=== PATIENT | female | born 1960 | race Caucasian/White ===

== ENCOUNTER 2016-11-05 22:20 | Emergency (ER) | payer OTHER, BC ==
[2016-11-05] MEDS ORDERED: FAMOTIDINE 20 MG TABLET PO STA (22:32)
[2016-11-05] MEDS ORDERED: predniSONE 20 MG TABLET PO STA (22:32)
[2016-11-05] MEDS ORDERED: diphenhydrAMINE 25 MG CAPSULE PO STA (22:32)
[2016-11-05] MEDS ORDERED: FAMOTIDINE 20 MG TABLET ONE (22:33)
[2016-11-05] MEDS ORDERED: diphenhydrAMINE 25 MG CAPSULE PO ONE (22:33)
[2016-11-05] MEDS ORDERED: predniSONE 20 MG TABLET ONE (22:33)
== END 2016-11-05 23:00 | disposition home or self-care (01) ==
DX: L27.0 Generalized skin eruption due to drugs and medicaments taken internally (principal); T37.8X5A Adverse effect of other specified systemic anti-infectives and antiparasitics, initial encounter; T49.0X5A Adverse effect of local antifungal, anti-infective and anti-inflammatory drugs, initial encounter
CPT/HCPCS: 99283; A9270; J7512

== ENCOUNTER 2017-11-07 23:32 | Emergency (ER) | payer OTHER, BC ==
[2017-11-07] MEDS ORDERED: KETOROLAC 60 MG/2 ML VIAL IVP STA (23:41)
[2017-11-07] MEDS ORDERED: SODIUM CHLORIDE 0.9% 1,000 ML IV ONE (23:41)
[2017-11-08 00:28] LABS: BILIRUBIN,URINE NEGATIVE (NEGATIVE); GLUCOSE, URINE (UA) NEGATIVE (NEGATIVE); KETONES,URINE (UA) NEGATIVE (NEGATIVE); LEUKOCYTE ESTERASE, URINE SMALL (NEGATIVE); NITRITE,URINE NEGATIVE (NEGATIVE); OCCULT BLOOD,URINE LARGE (NEGATIVE); PH,URINE 5.5 PH (5.0-7.5); PROTEIN,URINE 30 mg/dL (NEGATIVE); UROBILINOGEN,URINE 0.2 (NORMAL) E.U./dL (NORMAL)
[2017-11-08 00:30] LABS: CLARITY,URINE CLOUDY (CLEAR)
--- NOTE | 2017-11-08 00:40 | CT Preliminary Report ---
Exam: CT ABDOMEN/PELVIS W/O IMPRESSION: 1. Moderate right-sided hydronephrosis due to a 5 mm right UPJ stone, 814 Hounsfield units in density . 2. No additional right or left-sided intrarenal stone. 3. Surgically absent uterus. Ovaries are not visualized, possibly surgically absent as well. 4. No bowel obstruction. Averaged moderate retained colon fecal material. [facility] SITE ID: [id number]
[2017-11-08 00:45] LABS: BACTERIA,URINE Rare /HPF (None Seen); MUCUS,URINE Few Strands; RBC,URINE TNTC /HPF (0-5); SQUAMOUS EPITHELIAL CELL,UR FEW Squamous (<= Few)
--- NOTE | 2017-11-08 00:50 | ED Physician Documentation ---
PD HPI ABD PAIN - Stated complaint Stated Complaint: ABDOMINAL PX - Chief complaint Chief Complaint: Abd Pain - History obtained from History obtained from: Patient, Family - History of Present Illness Timing - onset: Yesterday Timing - details: Intermittant, Waxing and waning Quality: Aching, Sharp Location: RLQ Worsened by: No: Position, Palpation Associated symptoms: Hematuria. No: Fever, Nausea Recently seen: Clinic - Additional information Additional information: Patient is a 57 year old female who is presenting to the emergency department for hematuria and abdominal pain. patient states that her symptoms started a few days ago. patient went to the clinic today where they checked her urine and she had blood in it but they told her everything was ok and started the patient on antibiotics for a sinusitis. Patient states that her abdominal pain persisted so she came to the emergency department. Review of Systems Constitutional: denies: Fever, Chills Eyes: reports: Reviewed and negative Ears: reports: Reviewed and negative Throat: reports: Reviewed and negative Cardiac: denies: Chest pain / pressure GI: reports: Abdominal Pain, Diarrhea. 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: 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, Ovarian cysts : None HEENT: None Psych: None Musculoskeletal: None Derm: None - Past Surgical History Past Surgical History: Yes General: Other /CLASSICS TEACHER: Hysterectomy - Present Medications Home Medications: Ambulatory Orders Medication Instructions Recorded Confirmed Levothyroxine Sodium [Synthroid] 150 mcg PO 11/07/17 Lorazepam [Ativan] 1 mg PO BID 11/07/17 11/07/17 raNITIdine [Zantac] 150 mg PO BID 11/07/17 11/07/17 Ketorolac [Toradol] 10 mg PO Q6H #14 tablet 11/08/17 Ondansetron Odt [Zofran] 4 mg TL Q6H PRN #14 tablet 11/08/17 Oxycodone HCl/Acetaminophen 1 - 2 each PO Q6H PRN #10 tablet 11/08/17 [Percocet 5-325 mg Tablet] Tamsulosin [Flomax] 0.4 mg PO DAILY #10 capsule 11/08/17 - Allergies Allergies/Adverse Reactions: Allergies Allergy/AdvReac Type Severity Reaction Status Date / Time No Known Drug Allergies Allergy Verified 11/07/17 23:41 - Social History Does the pt smoke?: No Smoking Status: Never smoker Does the pt drink ETOH?: No Does the pt have substance abuse?: No - Immunizations Immunizations are current?: Yes - POLST Patient has POLST: No PD ED PE NORMAL - General General: Alert and oriented X 3 - HEENT HEENT: Atraumatic - Neck Neck: Supple, no meningeal sign - Cardiac Cardiac: RRR - Respiratory Respiratory: No respiratory distress - Abdomen Abdomen: Soft, Non tender, Non distended - Derm Derm: Normal color, Warm and dry, No rash - Extremities Extremities: No deformity - Neuro Neuro: Alert and oriented X 3 Eye Opening: Spontaneous PD ED PE EXPANDED - General General: Alert, In Pain - HEENT HEENT: Dry mucous membranes Results - Vitals Vitals: Vital Signs - 24 hr 11/07/17 11/08/17 23:37 01:07 Temperature 36.3 C L Heart Rate 81 64 Respiratory 18 16 Rate Blood Pressure 158/73 H 147/75 H O2 Saturation 99 97 Oxygen O2 Source Room air - Labs Labs: Laboratory Tests 11/08/17 00:15 Urine Color YELLOW Urine Clarity CLOUDY Urine pH 5.5 Ur Specific [place] >=1.030 H Urine Protein 30 H Urine Glucose (UA) NEGATIVE Urine Ketones NEGATIVE Urine Occult Blood LARGE H Urine Nitrite NEGATIVE Urine Bilirubin NEGATIVE Urine Urobilinogen 0.2 (NORMAL) Ur Leukocyte Esterase SMALL H Urine RBC TNTC H Urine WBC 6-10 H Ur Squamous Epith Cells FEW Squamous Urine Bacteria Rare Urine Mucus Few Strands Ur Microscopic Review INDICATED Urine Culture Comments INDICATED - Rads (name of study) ct abd pelvis Radiology: Final report received (5.5 mm obstructing stone) PD MEDICAL DECISION MAKING - ED course Complexity details: reviewed old records, reviewed results, re-evaluated patient , considered differential, d/w patient ED course: Patient was seen and examined at bedside. IV access was gained. patient was treated with a fluid bolus and toradol 15mg IV. Imaging was ordered. When patient returned from imaging she was still in pain and treated with morphine 5mg. patient had a 5mm stone with mild hydro. patient's pain was well controlled, she was afebrile and non toxic appearing. Patient and family were given detailed discharge and follow up instructions and patient was stable for discharge with outpatient follow up. Departure - Departure Disposition: 01 Home, Self Care Clinical Impression: Kidney stone on right side Condition: Good Instructions: ED Stone Renal W Colic Follow-Up: [facility] [Provider Group] - Tomorrow Prescriptions: Ketorolac [Toradol] 10 mg PO Q6H #14 tablet Ondansetron Odt [Zofran] 4 mg TL Q6H PRN #14 tablet PRN Reason: Nausea / Vomiting Oxycodone HCl/Acetaminophen [Percocet 5-325 mg Tablet] 1 - 2 each PO Q6H PRN # 10 tablet PRN Reason: pain Tamsulosin [Flomax] 0.4 mg PO DAILY #10 capsule Comments: Your symptoms today were being caused by a kidney stone. it was 5.5 mm so it will most likely pass. It is important to stay well hydrated. You can take the zofran for nausea and you should take a flomax daily. You can take tylenol and toradol as needed for pain, and percocet for breakthrough pain. If you take the percocet you cannot drive or operate heavy machinery. You should call the urologist tomorrow to schedule a follow up appointment. You should return to the emergency department for fevers, chills, new worsening or uncontrollable symptoms. Discharge Date/Time: 11/08/17 01:25
[2017-11-08] MEDS ORDERED: MORPHINE 10 MG/ML VIAL IVP STA (00:55)
--- NOTE | 2017-11-08 01:06 | CT Report ---
EXAM: CT ABDOMEN AND PELVIS EXAM DATE: 11/08/2017 12:15 AM. CLINICAL HISTORY: Sudden onset right lower quadrant abdominal pain, hematuria today. COMPARISONS: None. TECHNIQUE: Routine helical CT imaging was performed through the abdomen and pelvis. IV contrast: None . Enteric contrast: No. Reconstructions: Coronal and sagittal. In accordance with CT protocol optimization, one or more of the following dose reduction techniques w ere utilized for this exam: automated exposure control, adjustment of mA and/or KV based on patient s ize, or use of iterative reconstructive technique. FINDINGS: Right Kidney/Ureter: Moderate right-sided hydronephrosis is present due to an obstructing right UPJ s tone measuring 5.5 mm (image 58 series 3). This stone measures 814 Hounsfield units in density. No ad ditional intrarenal stone demonstrated at this time. No definite renal mass within the confines of a non-contrast exam. Left Kidney/Ureter: No stones. No hydronephrosis or hydroureter. No definite renal mass within the co nfines of a non-contrast exam. Abdominal Solid Organs: Abdominal parenchymal organs are without significant abnormality within the c onfines of a noncontrast exam. Bowel: No evidence of bowel obstruction. Average to moderate retained colon fecal material, particula rly within the right hemicolon. Descending colon is predominantly collapsed. Appendix: Partially visualized appendix, normal in appearance. Lymph Nodes: No definite pathologic lymphadenopathy. Fluid: No significant ascites. Vasculature: Normal caliber aorta. There is mild to moderate aortic and branch vessel atherosclerosis . Pelvis: Surgically absent uterus. Ovaries are not visualized, possibly surgically absent as well. Dec ompressed bladder, precluding assessment. Bones: No definite suspicious bony lesions demonstrated. Lower Chest: No significant lung base consolidation or effusion. IMPRESSION: 1. Moderate right-sided hydronephrosis due to a 5 mm right UPJ stone, 814 Hounsfield units in density . 2. No additional right or left-sided intrarenal stone. 3. Surgically absent uterus. Ovaries are not visualized, possibly surgically absent as well. 4. No bowel obstruction. Average to moderate retained colon fecal material. [facility] Referring Provider Line: [phone] SITE ID: [id number]
[2017-11-08 01:08] VITALS: BP 147/75
== END 2017-11-08 01:25 | disposition home or self-care (01) ==
LOC: ED 23:32
DX: N13.2 Hydronephrosis with renal and ureteral calculous obstruction (principal)
CPT/HCPCS: 74176; 81001; 81003; 87086; 96361; 96374; 96375; 99283; 99284

== ENCOUNTER 2017-11-10 12:39 | Emergency (ER) | payer OTHER, BC ==
[2017-11-10 12:45] VITALS: BP 139/83
--- NOTE | 2017-11-10 13:01 | ED Physician Documentation ---
PD HPI ABD PAIN - Stated complaint Stated Complaint: BLOOD IN URINE - Chief complaint Chief Complaint: Abd Pain - History obtained from History obtained from: Patient - History of Present Illness Timing - onset: Today Timing - duration: Days (has blood in urine just today without pain. She had had recent 5 mm right ureteral stone and was having significant pain. That has improved and had not had pain for 2 days and no blood in urine. Now today with some hematuria but only mild pain at times right side.) Timing - details: Intermittant Quality: Aching Location: RLQ Radiation: Right flank Worsened by: No: Moving, Breathing Associated symptoms: Hematuria. No: Fever, Nausea, Vomiting, Dysuria, Vaginal dc Recently seen: Emergency Dept (2 days ago for right ureterolithiasis) Review of Systems Constitutional: denies: Fever, Chills : reports: Hematuria. denies: Dysuria, Frequency, Discharge PD PAST MEDICAL HISTORY - Past Medical History Cardiovascular: None Respiratory: None Neuro: None Endocrine/Autoimmune: None GI: None SVP RESEARCH & EBUSINESS OPERATIONS: 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, Ovarian cysts : None HEENT: None Psych: None Musculoskeletal: None Derm: None - Past Surgical History Past Surgical History: Yes General: Other /SVP RESEARCH & EBUSINESS OPERATIONS: Hysterectomy - Present Medications Home Medications: Ambulatory Orders Medication Instructions Recorded Confirmed Levothyroxine Sodium [Synthroid] 150 mcg PO 11/07/17 Lorazepam [Ativan] 1 mg PO BID 11/07/17 11/07/17 raNITIdine [Zantac] 150 mg PO BID 11/07/17 11/07/17 Ketorolac [Toradol] 10 mg PO Q6H #14 tablet 11/08/17 Ondansetron Odt [Zofran] 4 mg TL Q6H PRN #14 tablet 11/08/17 Oxycodone HCl/Acetaminophen 1 - 2 each PO Q6H PRN #10 tablet 11/08/17 [Percocet 5-325 mg Tablet] Tamsulosin [Flomax] 0.4 mg PO DAILY #10 capsule 11/08/17 Sulfamethox/Trimeth 800/160 1 each PO BID #10 tablet 11/10/17 [Bactrim Ds 800/160] - Allergies Allergies/Adverse Reactions: Allergies Allergy/AdvReac Type Severity Reaction Status Date / Time nitrofurantoin Allergy Rash Verified 11/10/17 12:45 [From Macrobid] - Social History Does the pt smoke?: No Smoking Status: Never smoker Does the pt drink ETOH?: No Does the pt have substance abuse?: No - Immunizations Immunizations are current?: Yes - POLST Patient has POLST: No PD ED PE NORMAL - Vitals Vital signs reviewed: Yes - General General: Alert and oriented X 3, No acute distress, Well developed/nourished - Cardiac Cardiac: RRR, No murmur - Respiratory Respiratory: No respiratory distress, Clear bilaterally - Abdomen Abdomen: Normal bowel sounds, Soft, Non tender, Non distended - Female Female : Deferred - Rectal Rectal: Deferred - Back Back: No CVA TTP - Derm Derm: Normal color, Warm and dry, No rash Results - Vitals Vitals: Vital Signs - 24 hr 11/10/17 12:41 Temperature 37.2 C Heart Rate 86 Respiratory 18 Rate Blood Pressure 139/83 H O2 Saturation 99 Oxygen O2 Source Room air - Labs Labs: Laboratory Tests 11/10/17 13:34 Urine Color LT RED Urine Clarity CLEAR Urine pH 5.5 Ur Specific [place] <=1.005 Urine Protein TRACE Urine Glucose (UA) NEGATIVE Urine Ketones NEGATIVE Urine Occult Blood LARGE H Urine Nitrite NEGATIVE Urine Bilirubin NEGATIVE Urine Urobilinogen 0.2 (NORMAL) Ur Leukocyte Esterase MODERATE H Urine RBC 6-10 H Urine WBC 11-25 H Ur Squamous Epith Cells FEW Squamous Amorphous Sediment Few Urine Bacteria Few Ur Microscopic Review INDICATED Urine Culture Comments INDICATED PD MEDICAL DECISION MAKING - ED course Complexity details: reviewed old records, considered differential (only mild pain and has hematuria. Might be stone is still passing or it has passed and still some residual hematuria. UA suggests mild infection and could be souce. She does not look ill so I don't think is infected stone per se and did not feel compelled to repeat imaging. ), d/w patient Departure - Departure Disposition: 01 Home, Self Care Clinical Impression: Kidney stone on right side Abdominal pain Qualifiers: Abdominal location: right lower quadrant Qualified Code(s): R10.31 - Right lower quadrant pain UTI (urinary tract infection) Qualifiers: Urinary tract infection type: site unspecified Hematuria presence: with hematuria Qualified Code(s): N39.0 - Urinary tract infection, site not specified Condition: Stable Record reviewed to determine appropriate education?: Yes Instructions: ED UTI Cystitis Female Follow-Up: David Lr DO [Primary Care Provider] - Prescriptions: Sulfamethox/Trimeth 800/160 [Bactrim Ds 800/160] 1 each PO BID #10 tablet Comments: The blood in the urine is common enough with kidney stones and likely suggests that it still passing. Continue current medications for that including Tylenol or ibuprofen for pains. Your urine does have some suggestion of infection in addition to the blood, and so we will treat with an antibiotic twice daily for 5 days in case. Forms: Activity restrictions Discharge Date/Time: 11/10/17 14:33
[2017-11-10 13:46] LABS: BILIRUBIN,URINE NEGATIVE (NEGATIVE); GLUCOSE, URINE (UA) NEGATIVE (NEGATIVE); KETONES,URINE (UA) NEGATIVE (NEGATIVE); LEUKOCYTE ESTERASE, URINE MODERATE (NEGATIVE); NITRITE,URINE NEGATIVE (NEGATIVE); OCCULT BLOOD,URINE LARGE (NEGATIVE); PH,URINE 5.5 PH (5.0-7.5); PROTEIN,URINE TRACE mg/dL (NEGATIVE); UROBILINOGEN,URINE 0.2 (NORMAL) E.U./dL (NORMAL)
[2017-11-10 13:48] LABS: CLARITY,URINE CLEAR (CLEAR)
[2017-11-10 14:02] LABS: AMORPHOUS SEDIMENT,UR Few /LPF; BACTERIA,URINE Few /HPF (None Seen); SQUAMOUS EPITHELIAL CELL,UR FEW Squamous (<= Few)
[2017-11-10] MEDS ORDERED: SULFAMETH/TRIMETH DS 800/160 MG TABLET PO STA (14:11)
== END 2017-11-10 14:33 | disposition home or self-care (01) ==
LOC: ED 12:39
DX: N20.0 Calculus of kidney (principal); N39.0 Urinary tract infection, site not specified; R31.9 Hematuria, unspecified
CPT/HCPCS: 81001; 81003; 87086; 99283

== ENCOUNTER 2017-11-11 09:43 | Outpatient (CLI) | payer OTHER, BC ==
--- NOTE | 2017-11-11 12:31 | XRAY Report ---
SUPINE ABDOMEN: 11/11/2017 CLINICAL INDICATION: Renal calculus. FINDINGS: Supine view of the abdomen is compared to previous CT of 11/08/2017. The bowel gas pattern appears unremarkable. The 5 mm right ureteral calculus is now seen adjacent to the inferior endplate of L4. No other calculus is appreciated. IMPRESSION: 5 MM RIGHT URETERAL CALCULUS AT THE INFERIOR ENDPLATE OF L4. TD: 11/11/2017 12:30
== END 2017-11-11 09:44 | disposition home or self-care (01) ==
LOC: DI 09:43
PROVIDERS: ATTEND Specialist
DX: N20.1 Calculus of ureter (principal)
CPT/HCPCS: 74018

== ENCOUNTER 2018-10-04 21:45 | Emergency (ER) | payer OTHER, BC ==
[2018-10-04 21:50] VITALS: BP 148/77
[2018-10-04] MEDS ORDERED: PROPARACAINE 0.5% OPHTH DROPS 15 ML RIGHTEYE STA (21:53)
[2018-10-04] MEDS ORDERED: ERYTHROMYCIN OPHTH OINT 1 GM TUBE RIGHTEYE STA (22:14)
--- NOTE | 2018-10-04 22:17 | ED Physician Documentation ---
PD HPI OPHTHO - Stated complaint Stated Complaint: SOMETHIN IN RIGHT EYE - Chief complaint Chief Complaint: Heent - History obtained from History obtained from: Patient - History of Present Illness Timing - onset: How many hours ago (2) Timing - duration: Hours Timing - details: Abrupt onset Pain level max: 1 Pain level now: 1 Severity Comments: mild Location: Right Quality / character: Itching, Burning Associated symptoms: Redness Contributing factors: Other (unknown foreign body) Review of Systems Constitutional: reports: Reviewed and negative Eyes: reports: Irritation Ears: reports: Reviewed and negative Nose: reports: Reviewed and negative Throat: reports: Reviewed and negative Cardiac: reports: Reviewed and negative Respiratory: reports: Reviewed and negative GI: reports: Reviewed and negative : reports: Reviewed and negative Skin: reports: Reviewed and negative Musculoskeletal: reports: Reviewed and negative Neurologic: reports: Reviewed and negative Psychiatric: reports: Reviewed and negative Endocrine: reports: Reviewed and negative Immunocompromised: reports: Reviewed and negative PD PAST MEDICAL HISTORY - Past Medical History Past Medical History: Yes Cardiovascular: None Respiratory: None Endocrine/Autoimmune: None GI: None 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: 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, Ovarian cysts : None HEENT: None Psych: None Musculoskeletal: None Derm: None Other Past Medical History: Reviewed - Past Surgical History Past Surgical History: Yes General: Other /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: Hysterectomy Other past surgical history: Reviewed - Present Medications Home Medications: Ambulatory Orders Medication Instructions Recorded Confirmed Levothyroxine Sodium [Synthroid] 150 mcg PO 11/07/17 Lorazepam [Ativan] 1 mg PO BID 11/07/17 11/07/17 raNITIdine [Zantac] 150 mg PO BID 11/07/17 11/07/17 Ketorolac [Toradol] 10 mg PO Q6H #14 tablet 11/08/17 Ondansetron Odt [Zofran] 4 mg TL Q6H PRN #14 tablet 11/08/17 Oxycodone HCl/Acetaminophen 1 - 2 each PO Q6H PRN #10 tablet 11/08/17 [Percocet 5-325 mg Tablet] Tamsulosin [Flomax] 0.4 mg PO DAILY #10 capsule 11/08/17 Sulfamethox/Trimeth 800/160 1 each PO BID #10 tablet 11/10/17 [Bactrim Ds 800/160] - Allergies Allergies/Adverse Reactions: Allergies Allergy/AdvReac Type Severity Reaction Status Date / Time amoxicillin Allergy Unknown Verified 10/04/18 21:50 nitrofurantoin Allergy Rash Verified 11/10/17 12:45 [From Macrobid] - Living Situation Living Situation: reports: With family Living Arrangement: reports: At home - Social History Does the pt smoke?: No Smoking Status: Never smoker Does the pt drink ETOH?: No Does the pt have substance abuse?: No - Family History Family history: reports: Other (Reviewed and not pertinent) - Immunizations Immunizations are current?: Yes - POLST Patient has POLST: No PD ED PE NORMAL - Vitals Vital signs reviewed: Yes - General General: Alert and oriented X 3, No acute distress - HEENT HEENT: PERRL, Other (Fluorescein exam shows corneal abrasion on right lower eye.No foreign body.) - Neck Neck: Supple, no meningeal sign - Cardiac Cardiac: RRR, No murmur - Respiratory Respiratory: Clear bilaterally - Abdomen Abdomen: Normal bowel sounds, Soft, Non tender, Non distended - Derm Derm: Warm and dry - Extremities Extremities: No deformity - Neuro Neuro: Alert and oriented X 3 - Psych Psych: Normal mood, Normal affect Results - Vitals Vitals: Vital Signs - 24 hr 10/04/18 21:48 Temperature 37.0 C Heart Rate 72 Respiratory 18 Rate Blood Pressure 148/77 H O2 Saturation 99 Oxygen O2 Source Room air PD MEDICAL DECISION MAKING - ED course Complexity details: re-evaluated patient, considered differential, d/w patient, d/w family ED course: 57-year-old female with corneal abrasion. Discharged with erythromycin eye ointment. Departure - Departure Disposition: 01 Home, Self Care Clinical Impression: Corneal abrasion Qualifiers: Encounter type: initial encounter Laterality: right Qualified Code(s): S05.01XA - Injury of conjunctiva and corneal abrasion without foreign body, right eye, initial encounter Condition: Good Instructions: ED Eye Injury Corneal Abrasion Comments: Apply erythromycin eye ointment for 3 times daily for up to 3 days. Follow-up with PCP or eye doctor within 24 hours. Return with worsening symptoms.
== END 2018-10-04 22:22 | disposition home or self-care (01) ==
LOC: ED 21:45
DX: S05.01XA Injury of conjunctiva and corneal abrasion without foreign body, right eye, initial encounter (principal); X58.XXXA Exposure to other specified factors, initial encounter
CPT/HCPCS: 99282; 99283; J3490

== ENCOUNTER 2019-04-18 16:06 | Emergency (ER) | payer OTHER, BC ==
[2019-04-18] MEDS ORDERED: SODIUM CHLORIDE 0.9% 1,000 ML IV ONE (16:55)
--- NOTE | 2019-04-18 16:58 | ED Physician Documentation ---
History of Present Illness - Stated complaint Stated Complaint: DIARRHEA/MED RX - Chief complaint Chief Complaint: General - Additonal information Additional information: This is a 58-year-old female presents with diarrhea. Patient states that she had some dental pain and she was prescribed clindamycin, After taking 4 pills of clindamycin she began developing diarrhea 5 days ago, she has had up to 8 loose nonbloody stools daily. She stopped the clindamycin after 4 pills. She states that anytime she eats she will have an episode of diarrhea. She has been able to eat and drink. She denies abdominal pain. She denies any history of C. difficile. She is not currently taking any antibiotics. She denies fever, chills. 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: 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, Ovarian cysts : None HEENT: None Psych: None Musculoskeletal: None Derm: None - Past Surgical History Past Surgical History: Yes General: Other /RAILROAD OPERATOR: Hysterectomy - Present Medications Home Medications: Ambulatory Orders Medication Instructions Recorded Confirmed Levothyroxine Sodium [Synthroid] 150 mcg PO 11/07/17 Lorazepam [Ativan] 1 mg PO BID 11/07/17 11/07/17 raNITIdine [Zantac] 150 mg PO BID 11/07/17 11/07/17 Ketorolac [Toradol] 10 mg PO Q6H #14 tablet 11/08/17 Ondansetron Odt [Zofran] 4 mg TL Q6H PRN #14 tablet 11/08/17 Oxycodone HCl/Acetaminophen 1 - 2 each PO Q6H PRN #10 tablet 11/08/17 [Percocet 5-325 mg Tablet] Tamsulosin [Flomax] 0.4 mg PO DAILY #10 capsule 11/08/17 Sulfamethox/Trimeth 800/160 1 each PO BID #10 tablet 11/10/17 [Bactrim Ds 800/160] - Allergies Allergies/Adverse Reactions: Allergies Allergy/AdvReac Type Severity Reaction Status Date / Time amoxicillin Allergy Unknown Verified 10/04/18 21:50 nitrofurantoin Allergy Rash Verified 11/10/17 12:45 [From Macrobid] - Social History Does the pt smoke?: No Smoking Status: Never smoker Does the pt drink ETOH?: No Does the pt have substance abuse?: No - Immunizations Immunizations are current?: Yes - POLST Patient has POLST: No PD ED PE NORMAL - Vitals Vital signs reviewed: Yes - General General: Alert and oriented X 3, No acute distress - HEENT HEENT: PERRL - Neck Neck: Supple, no meningeal sign - Cardiac Cardiac: RRR, No murmur - Respiratory Respiratory: Clear bilaterally - Abdomen Abdomen: Soft, Non tender, Non distended - Derm Derm: Warm and dry - Extremities Extremities: No deformity - Neuro Neuro: Alert and oriented X 3 - Psych Psych: Normal mood, Normal affect Results - Vitals Vitals: Vital Signs - 24 hr 04/18/19 04/18/19 04/18/19 16:35 16:59 18:01 Temperature 36.9 C Heart Rate 65 61 59 L Respiratory 18 18 18 Rate Blood Pressure 144/77 H 145/66 H 154/75 H O2 Saturation 99 99 98 04/18/19 19:16 Temperature Heart Rate 58 L Respiratory 16 Rate Blood Pressure 137/72 H O2 Saturation 97 Oxygen O2 Source Room air - Labs Labs: Laboratory Tests 04/18/19 04/18/19 04/18/19 17:08 17:08 18:00 WBC 3.5 L RBC 4.20 Hgb 13.3 Hct 39.5 MCV 94.0 MCH 31.7 H MCHC 33.7 RDW 12.6 Plt Count 201 MPV 9.9 Neut # (Auto) 1.4 L Lymph # (Auto) 1.7 [place] # (Auto) 0.4 Eos # (Auto) 0.0 Baso # (Auto) 0.0 Absolute Nucleated RBC 0.00 Nucleated RBC % 0.0 Sodium 137 Potassium 3.5 Chloride 102 Carbon Dioxide 26 Anion Gap 9.0 BUN 15 Creatinine 0.8 Estimated GFR (MDRD) 73 L Glucose 108 H Calcium 9.3 Total Bilirubin 0.4 AST 33 ALT 29 Alkaline Phosphatase 72 Total Protein 7.6 Albumin 4.3 Globulin 3.3 Albumin/Globulin Ratio 1.3 Lipase 33 Urine Color YELLOW Urine Clarity CLEAR Urine pH 6.5 Ur Specific [place] 1.015 Urine Protein NEGATIVE Urine Glucose (UA) NEGATIVE Urine Ketones TRACE Urine Occult Blood NEGATIVE Urine Nitrite NEGATIVE Urine Bilirubin NEGATIVE Urine Urobilinogen 0.2 (NORMAL) Ur Leukocyte Esterase NEGATIVE Ur Microscopic Review NOT INDICATED Urine Culture Comments NOT INDICATED PD MEDICAL DECISION MAKING - ED course Complexity details: considered differential (C. diff, antibiotic associated diarrhea, viral enteritis, infectious diarrhea, electrolyte abnormality) ED course: Pt has a benign abdominal exam and no abdominal pain. Labs show a slight leukopenia, normal CMP. At this time an antibiotic- associated diarrhea appears most likely, c-diff is possible but less likely given the short duration of her abx and her normal WBC. I did order a c-diff test, but she had no diarrhea while in the ED for several hours, despite eating. I discussed supportive care and hydration and return precautions. If she has persistent diarrhea, abdominal pain, or new/worsening symptoms she will return to the ED. She could also pursue stool testing through her PCP if she has continued diarrhea. Patient agrees and was discharged home. Departure - Departure Disposition: 01 Home, Self Care Clinical Impression: Diarrhea Qualifiers: Diarrhea type: unspecified type Qualified Code(s): R19.7 - Diarrhea, unspecified Condition: Good Follow-Up: Mignon Giordano MD [Primary Care Provider] - Within 1 week Comments: You were seen today for diarrhea. This may have been caused by the clindamycin. Your white blood cell count was a little bit low today, please have this rechecked with your primary care provider. Drink plenty of fluids and stay hydrated, if you have blood in your diarrhea, abdominal pain, or other concerning symptoms return to the emergency department. If your diarrhea continues you may need to be checked for a C. difficile infection, though at this time it appears unlikely Discharge Date/Time: 04/18/19 19:16
[2019-04-18 17:17] LABS: BASOPHILS % (AUTO) 0.3 %; HGB - HEMOGLOBIN 13.3 g/dL (12.0-16.0); LYMPHOCYTES # (AUTO) 1.7 10^3/uL (1.5-3.5); LYMPHOCYTES % (AUTO) 48.9 %; MEAN CORPUSCULAR HEMOGLOBIN 31.7 pg (27.0-31.0); MEAN CORPUSCULAR HGB CONC 33.7 g/dL (32.0-36.0); MEAN PLATELET VOLUME 9.9 fL (7.9-10.8); MONOCYTES # (AUTO) 0.4 10^3/uL (0.0-1.0); MONOCYTES % (AUTO) 10.6 %; NEUTROPHILS # (AUTO) 1.4 10^3/uL (1.5-6.6); NEUTROPHILS % (AUTO) 39.9 %; PLT - PLATELET COUNT 201 10^3/uL (130-450); RED CELL DISTRIBUTION WIDTH 12.6 % (12.0-15.0); WHITE BLOOD COUNT 3.5 x10^3/uL (4.8-10.8)
[2019-04-18 17:27] LABS: ALBUMIN 4.3 g/dL (3.2-5.5); ALBUMIN/GLOBULIN RATIO 1.3 (1.0-2.2); BILIRUBIN,TOTAL 0.4 mg/dL (0.2-1.0); CALCIUM 9.3 mg/dL (8.5-10.3); CREATININE 0.8 mg/dL (0.4-1.0); TOTAL PROTEIN 7.6 g/dL (6.7-8.2)
[2019-04-18 18:20] LABS: BILIRUBIN,URINE NEGATIVE (NEGATIVE); GLUCOSE, URINE (UA) NEGATIVE (NEGATIVE); KETONES,URINE (UA) TRACE mg/dL (NEGATIVE); LEUKOCYTE ESTERASE, URINE NEGATIVE (NEGATIVE); NITRITE,URINE NEGATIVE (NEGATIVE); OCCULT BLOOD,URINE NEGATIVE (NEGATIVE); PH,URINE 6.5 PH (5.0-7.5); PROTEIN,URINE NEGATIVE (NEGATIVE); UROBILINOGEN,URINE 0.2 (NORMAL) E.U./dL (NORMAL)
[2019-04-18 18:22] LABS: CLARITY,URINE CLEAR (CLEAR)
[2019-04-18 19:17] VITALS: BP 137/72
== END 2019-04-18 19:16 | disposition home or self-care (01) ==
LOC: ED 16:06
DX: R19.7 Diarrhea, unspecified (principal); D72.819 Decreased white blood cell count, unspecified
CPT/HCPCS: 36415; 80053; 81001; 81003; 83690; 85025; 87086; 96360; 99282

== ENCOUNTER 2019-12-28 19:05 | Emergency (ER) | payer OTHER, BC ==
[2019-12-28 19:21] VITALS: BP 146/88
--- NOTE | 2019-12-28 19:26 | ED Physician Documentation ---
PD HPI UPPER EXT INJURY - Stated complaint Stated Complaint: LT WRIST INJ - Chief complaint Chief Complaint: Ext Problem - History obtained from History obtained from: Patient (She slipped and fell at the a hardware store today onto an out stretched left wrist. She has moderate left wrist pain. No other injuries. 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: Hysterectomy - Present Medications Home Medications: Ambulatory Orders Medication Instructions Recorded Confirmed Levothyroxine Sodium [Synthroid] 150 mcg PO 11/07/17 Lorazepam [Ativan] 1 mg PO BID 11/07/17 11/07/17 raNITIdine [Zantac] 150 mg PO BID 11/07/17 11/07/17 Ketorolac [Toradol] 10 mg PO Q6H #14 tablet 11/08/17 Ondansetron Odt [Zofran] 4 mg TL Q6H PRN #14 tablet 11/08/17 Oxycodone HCl/Acetaminophen 1 - 2 each PO Q6H PRN #10 tablet 11/08/17 [Percocet 5-325 mg Tablet] Tamsulosin [Flomax] 0.4 mg PO DAILY #10 capsule 11/08/17 Sulfamethox/Trimeth 800/160 1 each PO BID #10 tablet 11/10/17 [Bactrim Ds 800/160] Oxycodone HCl/Acetaminophen 1 - 2 each PO Q6H PRN #14 tablet 12/28/19 [Percocet 5-325 mg Tablet] - Allergies Allergies/Adverse Reactions: Allergies Allergy/AdvReac Type Severity Reaction Status Date / Time amoxicillin Allergy Unknown Verified 10/04/18 21:50 nitrofurantoin Allergy Rash Verified 11/10/17 12:45 [From Macrobid] - Social History Does the pt smoke?: No Smoking Status: Never smoker Does the pt drink ETOH?: No Does the pt have substance abuse?: No - Immunizations Immunizations are current?: Yes - POLST Patient has POLST: No PD ED PE NORMAL - Vitals Vital signs reviewed: Yes - General General: Alert and oriented X 3, No acute distress - Extremities Extremities: Other (She is focally tender over the ulnar side carpals dorsally with some bruising in that area 2. No tenderness over the ulna or radius. No tenderness in the snuffbox. She has limited range of motion especially in extension.) - Neuro Neuro: Alert and oriented X 3, Normal speech Results - Vitals Vitals: Vital Signs - 24 hr 12/28/19 19:18 Temperature 36.8 C Heart Rate 67 Respiratory 16 Rate Blood Pressure 146/88 H O2 Saturation 100 Oxygen O2 Source Room air - Rads (name of study) L wrist XR Radiology: EMP read contemporaneously (triquetral frx) Procedures - Splint (location) LUE Splint applied by: Tech Type of splint: Fiberglass, Short arm, Volar cock up Other: Patient tolerated well, No complications, Neurovascular intact Departure - Departure Disposition: 01 Home, Self Care Clinical Impression: Fracture of triquetrum of left wrist Qualifiers: Encounter type: initial encounter Fracture type: closed Fracture alignment: nondisplaced Qualified Code(s): S62.115A - Nondisplaced fracture of triquetrum [cuneiform] bone, left wrist, initial encounter for closed fracture Condition: Good Record reviewed to determine appropriate education?: Yes Instructions: ED Fx Wrist Navicular Conf Follow-Up: [facility] [Provider Group] Prescriptions: Oxycodone HCl/Acetaminophen [Percocet 5-325 mg Tablet] 1 - 2 each PO Q6H PRN #14 tablet PRN Reason: pain Comments: Keep the splint on and dry, follow-up with the orthopedic surgeon within the week for recheck and likely casting or further splinting. Return for new or worsening symptoms. Do not drink or drive while taking narcotic pain medication. Note that many narcotic pain relievers also contain Tylenol/acetaminophen. Please ensure that your total dose of acetaminophen from all sources does not exceed 3 g (3000 mg) per day. You may get constipated while on this medication. Take a stool softener such as Colace twice a day while you are on it. Also add an [id number] laxative such as senna or MiraLAX on any day that you do not have a bowel movement. If you received a narcotic pain medication or sedative while in the emergency department, do not drive for the next 24 hours. Forms: Activity restrictions Discharge Date/Time: 12/28/19 20:08
[2019-12-28] MEDS ORDERED: HYDROcod/ACET 5/325 Prepack 4 PO STA (19:49)
[2019-12-28] MEDS ORDERED: oxyCODONE/ACET 5/325 Prepack 4 PO STA (19:53)
--- NOTE | 2019-12-28 19:57 | XRAY Report ---
PROCEDURE: Wrist 4 View LT INDICATIONS: wrist inj- focus on triquetrum/pisiform TECHNIQUE: 4 views of the wrist were acquired. COMPARISON: None. FINDINGS: Bones: There is a triquetral fracture with a fragment in the dorsal aspect on the lateral projection No dislocations. No suspicious bony lesions. A tiny ossicle distal to the ulnar styloid may be seq uelae of old injury. Scaphoid view: Scaphoid is intact Soft tissues: No suspicious soft tissue calcifications. IMPRESSION: Triquetral fracture. Reviewed by: Tammi Brown MD on 12/28/2019 7:56 PM PDT Approved by: Tammi Brown MD on 12/28/2019 7:56 PM PDT Station ID: [id number]
== END 2019-12-28 20:08 | disposition home or self-care (01) ==
LOC: ED 19:05
DX: S62.115A Nondisplaced fracture of triquetrum [cuneiform] bone, left wrist, initial encounter for closed fracture (principal); W01.0XXA Fall on same level from slipping, tripping and stumbling without subsequent striking against object, initial encounter; Y92.512 Supermarket, store or market as the place of occurrence of the external cause
CPT/HCPCS: 29125; 99283

== ENCOUNTER 2021-01-01 01:40 | Emergency (ER) | payer OTHER, BC ==
[2021-01-01 02:36] LABS: BILIRUBIN,URINE NEGATIVE (NEGATIVE); GLUCOSE, URINE (UA) NEGATIVE (NEGATIVE); KETONES,URINE (UA) NEGATIVE (NEGATIVE); LEUKOCYTE ESTERASE, URINE MODERATE (NEGATIVE); NITRITE,URINE NEGATIVE (NEGATIVE); OCCULT BLOOD,URINE LARGE (NEGATIVE); PROTEIN,URINE NEGATIVE (NEGATIVE); UROBILINOGEN,URINE 0.2 (NORMAL) E.U./dL (NORMAL)
[2021-01-01 02:39] LABS: CLARITY,URINE CLEAR (CLEAR)
--- NOTE | 2021-01-01 02:51 | ED Physician Documentation ---
PD HPI FEMALE - Stated complaint Stated Complaint: FEM - Chief complaint Chief Complaint: UTI - History obtained from History obtained from: Patient - History of Present Illness Timing - onset: Enter time (00:00), How many hours ago (2 hours ago) Timing - details: Abrupt onset Pain level max: 3 Pain level max: 0 Associated symptoms: Dysuria, Urinary frequency. No: Fever Similar symptoms before: Has not had sx before - Additional information Additional information: Patient woke from sleep at approximately midnight, approximately two hours prior to arrival, with urge to urinate. However, she had very little urine output, pain with urination, and sensation of incomplete voiding. Since that time, she has had urinary frequency, with ongoing small amounts of output despite the sensation of her bladder being full. 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, Ovarian cysts : None HEENT: None Psych: None Musculoskeletal: None Derm: None - Past Surgical History Past Surgical History: Yes General: Other /SPORTS BETTING MANAGER: Hysterectomy - Present Medications Home Medications: Ambulatory Orders Medication Instructions Recorded Confirmed Levothyroxine Sodium [Synthroid] 150 mcg PO 11/07/17 Lorazepam [Ativan] 1 mg PO BID 11/07/17 11/07/17 raNITIdine [Zantac] 150 mg PO BID 11/07/17 11/07/17 Ketorolac [Toradol] 10 mg PO Q6H #14 tablet 11/08/17 Ondansetron Odt [Zofran] 4 mg TL Q6H PRN #14 tablet 11/08/17 Oxycodone HCl/Acetaminophen 1 - 2 each PO Q6H PRN #10 tablet 11/08/17 [Percocet 5-325 mg Tablet] Tamsulosin [Flomax] 0.4 mg PO DAILY #10 capsule 11/08/17 Sulfamethox/Trimeth 800/160 1 each PO BID #10 tablet 11/10/17 [Bactrim Ds 800/160] Oxycodone HCl/Acetaminophen 1 - 2 each PO Q6H PRN #14 tablet 12/28/19 [Percocet 5-325 mg Tablet] Phenazopyridine HCl [Pyridium] 200 mg PO TID PRN #6 tablet 01/01/21 cephALEXin [Keflex] 500 mg PO Q6H #28 01/01/21 - Allergies Allergies/Adverse Reactions: Allergies Allergy/AdvReac Type Severity Reaction Status Date / Time amoxicillin Allergy Unknown Verified 01/01/21 02:05 nitrofurantoin Allergy Rash Verified 01/01/21 02:05 [From Macrobid] - Social History Does the pt smoke?: No Smoking Status: Never smoker Does the pt drink ETOH?: No Does the pt have substance abuse?: No - Immunizations Immunizations are current?: Yes - POLST Patient has POLST: No PD ED PE NORMAL - Vitals Vital signs reviewed: Yes - General General: Alert and oriented X 3, No acute distress, Well developed/nourished - Abdomen Abdomen: Soft, Non tender, Non distended - Back Back: No CVA TTP Results - Vitals Vitals: Vital Signs - 24 hr 01/01/21 01/01/21 01:59 03:24 Temperature 36.2 C L 36.7 C Heart Rate 64 65 Respiratory 18 18 Rate Blood Pressure 147/75 H 159/86 H O2 Saturation 100 99 Oxygen O2 Source Room air - Labs Labs: Microbiology 01/01/21 02:21 Urine Culture - Preliminary Urine,Clean Catch Laboratory Tests 01/01/21 02:21 Urine Color YELLOW Urine Clarity CLEAR Urine pH 6.0 Ur Specific [place] <=1.005 Urine Protein NEGATIVE Urine Glucose (UA) NEGATIVE Urine Ketones NEGATIVE Urine Occult Blood LARGE H Urine Nitrite NEGATIVE Urine Bilirubin NEGATIVE Urine Urobilinogen 0.2 (NORMAL) Ur Leukocyte Esterase MODERATE H Urine RBC 0-5 Urine WBC 11-25 H Ur Squamous Epith Cells RARE Squamous Urine Bacteria Few Ur Microscopic Review INDICATED Urine Culture Comments INDICATED PD MEDICAL DECISION MAKING - ED course Complexity details: reviewed results, considered differential, d/w patient ED course: patient presents with two hours of symptoms that are consistent with urinary tract infection, and her urinalysis, both macroscopic and microscopic results, support the diagnosis of urinary tract infection. Due to her stated allergies of amoxicillin and nitrofurantoin, she is given Keflex. Patient says she has had Keflex in the past without notable side effect. She is also given a dose of Pyridum. She is provided with prescriptions for both the Pyridium and the Keflex Departure - Departure Disposition: Home, Self Care Clinical Impression: UTI (urinary tract infection) Condition: Good Instructions: ED UTI Cystitis Female Follow-Up: SAMIR LEI MD [Primary Care Provider] - (3-4 days if symptoms persist) Prescriptions: cephALEXin [Keflex] 500 mg PO Q6H #28 Phenazopyridine HCl [Pyridium] 200 mg PO TID PRN #6 tablet PRN Reason: dysuria Forms: Activity restrictions Discharge Date/Time: 01/01/21 03:15
[2021-01-01 02:52] LABS: RBC,URINE 0-5 /HPF (0-5); SQUAMOUS EPITHELIAL CELL,UR RARE Squamous (<= Few)
[2021-01-01 02:53] LABS: BACTERIA,URINE Few /HPF (None Seen)
[2021-01-01] MEDS ORDERED: cephALEXin 250 MG CAPSULE PO STA (03:05)
[2021-01-01] MEDS ORDERED: PHENAZOPYRIDINE 100 MG TABLET PO STA (03:07)
[2021-01-01 03:25] VITALS: BP 159/86
== END 2021-01-01 03:15 | disposition home or self-care (01) ==
LOC: ED 01:40
DX: N39.0 Urinary tract infection, site not specified (principal)
CPT/HCPCS: 81001; 87086; 87181; 99283; A9270; 81003

== ENCOUNTER 2021-07-04 08:00 | Outpatient (CLI) | payer OTHER, BC ==
--- NOTE | 2021-07-04 15:37 | XRAY Report ---
PROCEDURE: Knee 3 View LT INDICATIONS: L KNEE PX TECHNIQUE: 3 views of the left knee(s) were acquired. COMPARISON: None. FINDINGS: Bones: No fractures or dislocations. No suspicious bony lesions. Small bone island in the medial fe moral condyle. Soft tissues: Small joint effusion. No suspicious soft tissue calcifications. IMPRESSION: No fracture demonstrated. Small joint effusion. Reviewed by: Dilip Albarado MD on 07/04/2021 3:36 PM PST Approved by: Dilip Albarado MD on 07/04/2021 3:36 PM PST Station ID: [id number]
== END 2021-07-04 23:59 ==
LOC: DI.N 08:00
PROVIDERS: ATTEND Family Medicine
DX: M25.562 Pain in left knee (principal); M25.462 Effusion, left knee

== ENCOUNTER 2021-08-22 19:37 | Emergency (ER) | payer OTHER, BC ==
[2021-08-22 19:51] VITALS: BP 160/86
[2021-08-22] MEDS ORDERED: cephALEXin 250 MG CAPSULE PO STA (20:01)
[2021-08-22] MEDS ORDERED: SULFAMETH/TRIMETH DS 800/160 MG TABLET PO STA (20:01)
--- NOTE | 2021-08-22 20:06 | ED Physician Documentation ---
History of Present Illness - Stated complaint Stated Complaint: FEMALE - Chief complaint Chief Complaint: General - History obtained from History obtained from: Patient - History of Present Illness Timing: How many days ago (several days) Pain level max: 8 Pain level now: 6 - Additonal information Additional information: 60-year-old female presents to the emergency department complaining of pain to her bilateral buttocks. She states that she has hemorrhoids and had been treating herself for this at home. She states that when she pulled her glutes apart, that she noticed it was light pink the other day. She was having pain as well. Went to the walk-in clinic and was given Diflucan. She states now it has turned a darker and more dark red/purple. Increasing pain as well. No fevers. No chills. No pain with defecation or urination. 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 : None HEENT: None Psych: None Musculoskeletal: None Derm: None - Past Surgical History Past Surgical History: Yes General: Other /SENIOR NET ENGINEER: Hysterectomy - Present Medications Home Medications: Ambulatory Orders Medication Instructions Recorded Confirmed Levothyroxine Sodium [Synthroid] 150 mcg PO 11/07/17 Lorazepam [Ativan] 1 mg PO BID 11/07/17 11/07/17 raNITIdine [Zantac] 150 mg PO BID 11/07/17 11/07/17 Ketorolac [Toradol] 10 mg PO Q6H #14 tablet 11/08/17 Ondansetron Odt [Zofran] 4 mg TL Q6H PRN #14 tablet 11/08/17 Oxycodone HCl/Acetaminophen 1 - 2 each PO Q6H PRN #10 tablet 11/08/17 [Percocet 5-325 mg Tablet] Tamsulosin [Flomax] 0.4 mg PO DAILY #10 capsule 11/08/17 Sulfamethox/Trimeth 800/160 1 each PO BID #10 tablet 11/10/17 [Bactrim Ds 800/160] Oxycodone HCl/Acetaminophen 1 - 2 each PO Q6H PRN #14 tablet 12/28/19 [Percocet 5-325 mg Tablet] Phenazopyridine HCl [Pyridium] 200 mg PO TID PRN #6 tablet 01/01/21 cephALEXin [Keflex] 500 mg PO Q6H #28 01/01/21 HYDROcod/ACETAM 5/325 [[place] 5/325] 1 - 2 ea PO Q6H PRN #14 tablet 08/22/21 Hydrocortisone [Procto-Med Hc] 1 applic TP BID #1 tub 08/22/21 Sulfamethox/Trimeth 800/160 1 each PO BID #14 tablet 08/22/21 [Bactrim Ds 800/160] cephALEXin [Keflex] 500 mg PO Q6H #28 cap 08/22/21 - Allergies Allergies/Adverse Reactions: Allergies Allergy/AdvReac Type Severity Reaction Status Date / Time amoxicillin Allergy Unknown Verified 08/22/21 19:40 nitrofurantoin Allergy Rash Verified 08/22/21 19:40 [From Macrobid] - Social History Does the pt smoke?: No Smoking Status: Never smoker Does the pt drink ETOH?: No Does the pt have substance abuse?: No - Immunizations Immunizations are current?: Yes - POLST Patient has POLST: No PD ED PE NORMAL - Vitals Vital signs reviewed: Yes - General General: Alert and oriented X 3, No acute distress - HEENT HEENT: Moist mucous membranes - Neck Neck: Supple, no meningeal sign - Cardiac Cardiac: RRR - Respiratory Respiratory: No respiratory distress, Clear bilaterally - Abdomen Abdomen: Soft, Non tender, Non distended - Rectal Rectal: Other (Patient has moderate hemorrhoids, none are thrombosed or bleeding.) - Derm Derm: Warm and dry, Other (On the bilateral buttocks and the gluteal fold, there are dark red/purplish appearing areas. This is approximately 4 x 2 cm. On either side. No abscess. No fluctuance or drainage. Blanches easily. The skin is not raised. Mild warmth) - Neuro Neuro: Alert and oriented X 3 Results - Vitals Vitals: Vital Signs - 24 hr 08/22/21 19:40 Temperature 36.5 C Heart Rate 90 Respiratory 16 Rate Blood Pressure 160/86 H O2 Saturation 98 Oxygen O2 Source Room air PD MEDICAL DECISION MAKING - ED course Complexity details: considered differential, d/w patient ED course: Unclear etiology of the patient's symptoms, but appears consistent with possible cellulitis. We will place on antibiotics for home. Her hemorrhoids are also mildly inflamed and we will place on Proctocort for this. No evidence of abscess. No evidence of fistula. We will place on pain medication for home as well. I am prescribing a short course of short-acting opioid pain medication for this patient. I have reviewed the patients MUCK [employer]ULER and no concerning findings were noted. I have discussed that the opioids are for short term therapy only, and will not be refilled from the ED. patient counseled regarding signs and symptoms for which I believe and urgent re-evaluation would be necessary. Patient with good understanding of and agreement to plan and is comfortable going home at this time This document was made in part using voice recognition software. While efforts are made to proofread this document, sound alike and grammatical errors may occur. We will have her follow-up closely with her primary care for close evaluation to ensure healing Departure - Departure Disposition: 01 Home, Self Care Clinical Impression: Cellulitis Qualifiers: Site of cellulitis: buttock Qualified Code(s): L03.317 - Cellulitis of buttock Hemorrhoid Qualifiers: Hemorrhoid type: unspecified Qualified Code(s): K64.9 - Unspecified hemorrhoids Condition: Good Instructions: ED Infec Skin Cellulitis, ED Hemorrhoids Follow-Up: SAMIR LEI MD [Primary Care Provider] - Within 1 week Prescriptions: Sulfamethox/Trimeth 800/160 [Bactrim Ds 800/160] 1 each PO BID #14 tablet cephALEXin [Keflex] 500 mg PO Q6H #28 cap HYDROcod/ACETAM 5/325 [[place] 5/325] 1 - 2 ea PO Q6H PRN #14 tablet PRN Reason: Pain Hydrocortisone [Procto-Med Hc] 1 applic TP BID #1 tub Comments: Take all antibiotics until gone. Please follow-up with your doctor for further care. This should improve with the medication. Return if you worsen. Your prescriptions were sent to [facility] in [place]. If you are not improving in the next 24 to 48 hours, please return for repeat evaluation. I am prescribing a short course of narcotic pain medication for you. These are potentially dangerous and addictive medications that should be used carefully. These medications may constipate you. Take an ctog-ubg-tqhpsre stool softener (docusate) twice daily with plenty of water while taking these medications. If you go 24 hours without a bowel movement, take gsxm-[id number]-pzyzsjz miralax, per package instructions. Do not drink or drive while taking these medications. If you received narcotic or sedating medications while in the emergency department, do not drive for 24 hours. Store this medication in a safe, secure place and out of reach of children. It is a violation of federal law to give or sell this medication to another person or to use in a manner other than prescribed. The ED will not refill narcotic prescriptions, including prescriptions lost or stolen. To dispose of unwanted medications: 1. [facility] at [address] in [place] has a medication drop box. They accept prescription medications (in pill form) Saturday through Saturday 9:00 a.m. to 5:00 p.m. 2. The [facility] [employer] accepts prescription medications (in pill form only) for disposal year round. Call for more information. 3. Contact the [facility] for the next [facility] sponsored prescription drug collection event. , [phone], or [phone]; Discharge Date/Time: 08/22/21 20:11
== END 2021-08-22 20:11 | disposition home or self-care (01) ==
LOC: ED 19:37
DX: K64.9 Unspecified hemorrhoids (principal); L03.317 Cellulitis of buttock
CPT/HCPCS: 99282; 99284; A9270

== ENCOUNTER 2022-01-15 08:00 | Outpatient (CLI) | payer OTHER, BC | END 2022-01-15 23:59 | disposition home or self-care (01) | LOC: LAB.N 08:00 | PROVIDERS: ATTEND Physician Assistant Medical | DX: N30.00 Acute cystitis without hematuria (principal) | CPT/HCPCS: 87086 ==

== ENCOUNTER 2022-04-05 08:00 | Outpatient (CLI) | payer OTHER, BC ==
[2022-04-05 20:50] LABS: BASOPHILS % (AUTO) 0.4 %; EOSINOPHILS % (AUTO) 0.4 %; HCT - HEMATOCRIT 39.6 % (37.0-47.0); HGB - HEMOGLOBIN 13.2 g/dL (12.0-16.0); LYMPHOCYTES % (AUTO) 29.2 %; MEAN CORPUSCULAR HEMOGLOBIN 31.5 pg (27.0-31.0); MEAN CORPUSCULAR HGB CONC 33.3 g/dL (32.0-36.0); MEAN CORPUSCULAR VOLUME 94.5 fL (81.0-99.0); MEAN PLATELET VOLUME 11.2 fL (7.9-10.8); MONOCYTES # (AUTO) 0.5 10^3/uL (0.0-1.0); MONOCYTES % (AUTO) 7.5 %; NEUTROPHILS # (AUTO) 4.2 10^3/uL (1.5-6.6); NEUTROPHILS % (AUTO) 62.4 %; PLT - PLATELET COUNT 245 10^3/uL (130-450); RED BLOOD COUNT 4.19 10^6/uL (4.20-5.40); RED CELL DISTRIBUTION WIDTH 12.5 % (12.0-15.0); WHITE BLOOD COUNT 6.8 x10^3/uL (4.8-10.8)
[2022-04-05 21:08] LABS: ALBUMIN 5.1 g/dL (3.2-5.5); ALBUMIN/GLOBULIN RATIO 1.7 (1.0-2.2); BILIRUBIN,TOTAL 0.6 mg/dL (0.2-1.0); CALCIUM 10.1 mg/dL (8.5-10.3); CREATININE 0.9 mg/dL (0.4-1.0); POTASSIUM 4.2 mmol/L (3.5-5.0); TOTAL PROTEIN 8.1 g/dL (6.7-8.2)
[2022-04-05 21:25] LABS: THYROID STIMULATING HORMONE 1.74 uIU/mL (0.34-5.60)
[2022-04-05 21:27] LABS: FREE T3 2.66 pg/mL (2.5-3.9); FREE T4 (FREE THYROXINE) 1.04 ng/dL (0.58-1.64)
[2022-04-05 22:40] LABS: BACTERIAL VAGINOSIS DNA NEGATIVE (NEGATIVE); CANDIDA GLABRATA DNA NEGATIVE (NEGATIVE); CANDIDA GROUP DNA NEGATIVE (NEGATIVE); CANDIDA KRUSEI DNA NEGATIVE (NEGATIVE); TRICHOMONAS VAGINALIS DNA NEGATIVE (NEGATIVE)
== END 2022-04-05 23:59 | disposition home or self-care (01) ==
LOC: LAB.N 08:00
PROVIDERS: ATTEND Nurse Practitioner
DX: R30.0 Dysuria (principal)
CPT/HCPCS: 36415; 80053; 81514; 84439; 84443; 84481; 85025; 87086

== ENCOUNTER 2022-04-08 05:48 | Emergency (ER) | payer OTHER, BC ==
[2022-04-08 06:35] LABS: BILIRUBIN,URINE NEGATIVE (NEGATIVE); CLARITY,URINE CLEAR (CLEAR); GLUCOSE, URINE (UA) NEGATIVE (NEGATIVE); KETONES,URINE (UA) NEGATIVE (NEGATIVE); LEUKOCYTE ESTERASE, URINE NEGATIVE (NEGATIVE); NITRITE,URINE NEGATIVE (NEGATIVE); OCCULT BLOOD,URINE TRACE-INTA (NEGATIVE); PROTEIN,URINE NEGATIVE (NEGATIVE); UROBILINOGEN,URINE 0.2 (NORMAL) E.U./dL (NORMAL)
--- OUTSIDE RECORDS SUMMARY | 2022-04-08 07:04 | EXTERNAL MEDICAL SUMMARY RPT | Continuity of Care Document ---
:1960 Author Organization [facility] Address [address] [place] [address] Phone Allergies No information. Encounters No information. Functional Status No information. Immunizations No information. Medications date description facility +0000 phenazopyridine All [id number]+0000 sulfamethoxazole-trimethoprim All [id number]+0000 phenazopyridine All [id number]+0000 sulfamethoxazole-trimethoprim All Problems No information. Procedures date description facility +0000 Visit Code Hold All [id number] POC URINALYSIS DIP All Results/Labs No information. Social History date description facility +0000 Former smoker All Vital Signs date measurement value units [id number]+0000 BP_diastolic BP_diastolic 102 mm[H g] 49278787310429+0000 BP_systolic BP_systolic 159 mm[Hg] 47848016650653+0000 heart_rate heart_rate 93 /min 76297396431587+0000 respiration_rate respiration_rate 14 /min [id number]+0000 temperature_metric temperature_metric 36.61 C [id number]+0000 temperature_standard temperature_standard 9 7.9 F
[2022-04-08 07:28] LABS: ALBUMIN 4.7 g/dL (3.2-5.5); ALBUMIN/GLOBULIN RATIO 1.5 (1.0-2.2); BILIRUBIN,TOTAL 0.6 mg/dL (0.2-1.0); CALCIUM 9.7 mg/dL (8.5-10.3); CREATININE 0.7 mg/dL (0.4-1.0); POTASSIUM 3.8 mmol/L (3.5-5.0); TOTAL PROTEIN 7.9 g/dL (6.7-8.2)
[2022-04-08 07:29] LABS: BASOPHILS % (AUTO) 0.7 %; EOSINOPHILS # (AUTO) 0.1 10^3/uL (0.0-0.7); EOSINOPHILS % (AUTO) 1.2 %; HCT - HEMATOCRIT 39.9 % (37.0-47.0); HGB - HEMOGLOBIN 13.2 g/dL (12.0-16.0); LYMPHOCYTES # (AUTO) 1.9 10^3/uL (1.5-3.5); MEAN CORPUSCULAR HEMOGLOBIN 31.7 pg (27.0-31.0); MEAN CORPUSCULAR HGB CONC 33.1 g/dL (32.0-36.0); MEAN CORPUSCULAR VOLUME 95.7 fL (81.0-99.0); MEAN PLATELET VOLUME 10.2 fL (7.9-10.8); MONOCYTES # (AUTO) 0.4 10^3/uL (0.0-1.0); MONOCYTES % (AUTO) 7.5 %; NEUTROPHILS # (AUTO) 3.2 10^3/uL (1.5-6.6); NEUTROPHILS % (AUTO) 56.4 %; PLT - PLATELET COUNT 233 10^3/uL (130-450); RED BLOOD COUNT 4.17 10^6/uL (4.20-5.40); RED CELL DISTRIBUTION WIDTH 12.1 % (12.0-15.0); WHITE BLOOD COUNT 5.6 x10^3/uL (4.8-10.8)
--- NOTE | 2022-04-08 08:57 | ED Physician Documentation ---
PD HPI ABD PAIN - Stated complaint Stated Complaint: ABD PX - Chief complaint Chief Complaint: Abd Pain - History obtained from History obtained from: Patient - History of Present Illness Timing - onset: Other (2 weeks) Timing - duration: Weeks (2) Timing - details: Gradual onset Pain level max: 3 Pain level now: 2 Quality: Aching, Pain Location: Suprapubic Associated symptoms: Diarrhea, Dysuria. No: Fever, Nausea, Vomiting, Hematemesis, Constipation, Melena, Hematochezia, Hematuria Recently seen: Not recently seen - Additional information Additional information: Patient is a 61-year-old female who states that she has had dysuria for the past 2 weeks. No fever, no nausea or vomiting. She had some diarrhea but no constipation. She was treated with Bactrim for the UTI. She is concerned that she may still have a UTI. She also states that she had some vaginal itching, she did try clotrimazole per vagina at home, Which she states did help her symptoms. She also complains of a mild lower abdominal ache. She denies any vaginal bleeding or discharge at this time. No back pain. 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: 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, Ovarian cysts : None HEENT: None Psych: None Musculoskeletal: None Derm: None - Past Surgical History Past Surgical History: Yes General: Other /RESEARCH NUTRITIONIST: Hysterectomy - Present Medications Home Medications: Ambulatory Orders Medication Instructions Recorded Confirmed Levothyroxine Sodium [Synthroid] 150 mcg PO 11/07/17 Lorazepam [Ativan] 1 mg PO BID 11/07/17 11/07/17 raNITIdine [Zantac] 150 mg PO BID 11/07/17 11/07/17 Ketorolac [Toradol] 10 mg PO Q6H #14 tablet 11/08/17 Ondansetron Odt [Zofran] 4 mg TL Q6H PRN #14 tablet 11/08/17 Oxycodone HCl/Acetaminophen 1 - 2 each PO Q6H PRN #10 tablet 11/08/17 [Percocet 5-325 mg Tablet] Tamsulosin [Flomax] 0.4 mg PO DAILY #10 capsule 11/08/17 Sulfamethox/Trimeth 800/160 1 each PO BID #10 tablet 11/10/17 [Bactrim Ds 800/160] Oxycodone HCl/Acetaminophen 1 - 2 each PO Q6H PRN #14 tablet 12/28/19 [Percocet 5-325 mg Tablet] Phenazopyridine HCl [Pyridium] 200 mg PO TID PRN #6 tablet 01/01/21 cephALEXin [Keflex] 500 mg PO Q6H #28 01/01/21 HYDROcod/ACETAM 5/325 [[place] 5/325] 1 - 2 ea PO Q6H PRN #14 tablet 08/22/21 Hydrocortisone [Procto-Med Hc] 1 applic TP BID #1 tub 08/22/21 Sulfamethox/Trimeth 800/160 1 each PO BID #14 tablet 08/22/21 [Bactrim Ds 800/160] cephALEXin [Keflex] 500 mg PO Q6H #28 cap 08/22/21 - Allergies Allergies/Adverse Reactions: Allergies Allergy/AdvReac Type Severity Reaction Status Date / Time amoxicillin Allergy Unknown Verified 08/22/21 19:40 nitrofurantoin Allergy Rash Verified 08/22/21 19:40 [From Macrobid] clindamycin AdvReac Severe Cramps Verified 04/08/22 06:28 - Social History Does the pt smoke?: No Smoking Status: Never smoker Does the pt drink ETOH?: No Does the pt have substance abuse?: No - Immunizations Immunizations are current?: Yes - POLST Patient has POLST: No PD ED PE NORMAL - Vitals Vital signs reviewed: Yes - General General: Alert and oriented X 3, No acute distress - HEENT HEENT: PERRL, Moist mucous membranes - Neck Neck: Supple, no meningeal sign - Cardiac Cardiac: RRR, Strong equal pulses - Respiratory Respiratory: No respiratory distress, Clear bilaterally - Abdomen Abdomen: Soft, Non tender, Non distended - Female Female : Pt declined - Back Back: No CVA TTP, No spinal TTP - Derm Derm: Warm and dry, No rash - Extremities Extremities: No edema - Neuro Neuro: Alert and oriented X 3 - Psych Psych: Normal mood, Normal affect Results - Vitals Vitals: Vital Signs - 24 hr 04/08/22 04/08/22 06:23 10:26 Temperature 36.8 C Heart Rate 81 70 Respiratory 12 16 Rate Blood Pressure 138/68 H 124/61 O2 Saturation 100 99 Oxygen O2 Source Room air - Labs Labs: Laboratory Tests 04/08/22 04/08/22 04/08/22 06:20 07:10 07:10 WBC 5.6 RBC 4.17 L Hgb 13.2 Hct 39.9 MCV 95.7 MCH 31.7 H MCHC 33.1 RDW 12.1 Plt Count 233 MPV 10.2 Neut # (Auto) 3.2 Lymph # (Auto) 1.9 Lea # (Auto) 0.4 Eos # (Auto) 0.1 Baso # (Auto) 0.0 Absolute Nucleated RBC 0.00 Nucleated RBC % 0.0 Sodium 136 Potassium 3.8 Chloride 100 L Carbon Dioxide 29 Anion Gap 7.0 BUN 22 H Creatinine 0.7 Estimated GFR (MDRD) 85 L Glucose 108 H Calcium 9.7 Total Bilirubin 0.6 AST 20 ALT 16 Alkaline Phosphatase 63 Total Protein 7.9 Albumin 4.7 Globulin 3.2 Albumin/Globulin Ratio 1.5 Lipase 42 Urine Color YELLOW Urine Clarity CLEAR Urine pH 6.0 Ur Specific [place] <=1.005 Urine Protein NEGATIVE Urine Glucose (UA) NEGATIVE Urine Ketones NEGATIVE Urine Occult Blood TRACE-INTA Urine Nitrite NEGATIVE Urine Bilirubin NEGATIVE Urine Urobilinogen 0.2 (NORMAL) Ur Leukocyte Esterase NEGATIVE Ur Microscopic Review NOT INDICATED Urine Culture Comments NOT INDICATED C. glabrata (PCR) C. krusei (PCR) Amanda species DNA T. vaginalis (PCR) Bact Vaginosis (PCR) 04/08/22 10:10 WBC RBC Hgb Hct MCV MCH MCHC RDW Plt Count MPV Neut # (Auto) Lymph # (Auto) Lea # (Auto) Eos # (Auto) Baso # (Auto) Absolute Nucleated RBC Nucleated RBC % Sodium Potassium Chloride Carbon Dioxide Anion Gap BUN Creatinine Estimated GFR (MDRD) Glucose Calcium Total Bilirubin AST ALT Alkaline Phosphatase Total Protein Albumin Globulin Albumin/Globulin Ratio Lipase Urine Color Urine Clarity Urine pH Ur Specific [place] Urine Protein Urine Glucose (UA) Urine Ketones Urine Occult Blood Urine Nitrite Urine Bilirubin Urine Urobilinogen Ur Leukocyte Esterase Ur Microscopic Review Urine Culture Comments C. glabrata (PCR) NEGATIVE C. krusei (PCR) NEGATIVE Amanda species DNA NEGATIVE T. vaginalis (PCR) NEGATIVE Bact Vaginosis (PCR) NEGATIVE - Rads (name of study) CT abdomen pelvis Radiology: Final report received, EMP read contemporaneously, See rad report (No acute abnormality) PD MEDICAL DECISION MAKING - ED course Complexity details: reviewed results, re-evaluated patient, considered differential, d/w patient ED course: Patient is a 61-year-old female who presents with continued dysuria after being treated for UTI. No evidence of UTI today. She did improve with antifungal treatment at home, given a dose of Diflucan here. Bacterial vaginitis panel is negative. CT scan does not show any acute abnormalities. Laboratory testing is normal. Unclear etiology of her symptoms. We will have her follow-up with her doctor for further care. Patient counseled regarding signs and symptoms for which I believe and urgent re-evaluation would be necessary. Patient with good understanding of and agreement to plan and is comfortable going home at this time This document was made in part using voice recognition software. While efforts are made to proofread this document, sound alike and grammatical errors may occur. Departure - Departure Disposition: 01 Home, Self Care Clinical Impression: Dysuria, Pelvic pain in female, Vaginal candidiasis Condition: Good Instructions: ED Dysuria Uncertain Cause, ED Vaginal Infec Fungal Amanda Follow-Up: REGINALDO EASTMAN ARNP [Primary Care Provider] - Within 1 week Comments: Your bacterial vaginitis panel will result later today. I will call you if changes are needed. You were treated presumptively for a yeast infection today. Please follow-up with your doctor for further care. Your CT scan and laboratory testing are normal today. Discharge Date/Time: 04/08/22 11:48
--- NOTE | 2022-04-08 09:52 | CT Report ---
PROCEDURE: Abdomen/Pelvis W INDICATIONS: lower abd pain CONTRAST: IV CONTRAST: Optiray 320 ml: 100 PO CONTRAST: *NO PO CONTRAST TECHNIQUE: After the administration of IV contrast, 5 mm thick sections acquired from the diaphragms to the symp hysis. 5 mm thick coronal and sagittal reformats were acquired. For radiation dose reduction, the f ollowing was used: automated exposure control, adjustment of mA and/or kV according to patient size. COMPARISON: CT abdomen pelvis 11/08/2017 FINDINGS: Image quality: Excellent. ABDOMEN: Lung bases: Lung bases are clear. Heart size is normal. Solid organs: Liver and spleen are normal in size and enhancement. Gallbladder is unremarkable Fabian iary system is non dilated. Pancreas enhances normally. No adrenal nodules. Kidneys demonstrate no rmal size and enhancement, without hydronephrosis. Peritoneum and bowel: Bowel loops demonstrate normal wall thickness and caliber. No free fluid or a ir. Minimal scattered diverticula without inflammatory change. Nodes and vessels: No retroperitoneal or mesenteric adenopathy by size criteria. Aorta and inferior vena cava are normal in size. Miscellaneous: Fat-containing ventral hernia is present. PELVIS: Genitourinary: Bladder wall thickness is normal. Uterus is not visualized. Miscellaneous: No inguinal hernias or adenopathy. Bones: No suspicious bony lesions. No vertebral body compression fractures. IMPRESSION: No acute intrapelvic or pelvic process. Minimal diverticulosis. Reviewed by: Felicity Lucas MD on 04/08/2022 9:50 AM PDT Approved by: Felicity Lucas MD on 04/08/2022 9:50 AM PDT Station ID: [id number]
[2022-04-08 11:17] VITALS: BP 124/61
[2022-04-08] MEDS ORDERED: FLUCONAZOLE 100 MG TABLET PO STA (11:31)
[2022-04-08 12:15] LABS: BACTERIAL VAGINOSIS DNA NEGATIVE (NEGATIVE); CANDIDA GLABRATA DNA NEGATIVE (NEGATIVE); CANDIDA GROUP DNA NEGATIVE (NEGATIVE); CANDIDA KRUSEI DNA NEGATIVE (NEGATIVE); TRICHOMONAS VAGINALIS DNA NEGATIVE (NEGATIVE)
== END 2022-04-08 11:48 | disposition home or self-care (01) ==
LOC: ED 05:48
DX: R10.2 Pelvic and perineal pain (principal); R30.0 Dysuria; B37.9 Candidiasis, unspecified
CPT/HCPCS: 36415; 74177; 80053; 81003; 81514; 83690; 85025; 99282; 99284; A9270; Q9967; 81001; 87086

== ENCOUNTER 2023-05-03 11:35 | Emergency (ER) | payer OTHER, BC ==
[2023-05-03 11:49] VITALS: O2SAT 98
--- NOTE | 2023-05-03 12:43 | ED Physician Documentation ---
PD HPI MAJOR TRAUMA - Stated complaint Stated Complaint: SOA,CHEST PX - Chief complaint Chief Complaint: Trauma Ch/Bk - History obtained from History obtained from: Patient (5 gallon water bottle fell on her sternum just prior to arrival and has modest pain there. 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, Ovarian cysts : None HEENT: None Psych: None Musculoskeletal: None Derm: None - Past Surgical History Past Surgical History: Yes General: Other /PAPER TWISTER TENDER: Hysterectomy - Present Medications Home Medications: Ambulatory Orders Medication Instructions Recorded Confirmed Levothyroxine Sodium [Synthroid] 150 mcg PO 11/07/17 Lorazepam [Ativan] 1 mg PO BID 11/07/17 11/07/17 raNITIdine [Zantac] 150 mg PO BID 11/07/17 11/07/17 Ketorolac [Toradol] 10 mg PO Q6H #14 tablet 11/08/17 Ondansetron Odt [Zofran] 4 mg TL Q6H PRN #14 tablet 11/08/17 Oxycodone HCl/Acetaminophen 1 - 2 each PO Q6H PRN #10 tablet 11/08/17 [Percocet 5-325 mg Tablet] Tamsulosin [Flomax] 0.4 mg PO DAILY #10 capsule 11/08/17 Sulfamethox/Trimeth 800/160 1 each PO BID #10 tablet 11/10/17 [Bactrim Ds 800/160] Oxycodone HCl/Acetaminophen 1 - 2 each PO Q6H PRN #14 tablet 12/28/19 [Percocet 5-325 mg Tablet] Phenazopyridine HCl [Pyridium] 200 mg PO TID PRN #6 tablet 01/01/21 cephALEXin [Keflex] 500 mg PO Q6H #28 01/01/21 HYDROcod/ACETAM 5/325 [[place] 5/325] 1 - 2 ea PO Q6H PRN #14 tablet 08/22/21 Hydrocortisone [Procto-Med Hc] 1 applic TP BID #1 tub 08/22/21 Sulfamethox/Trimeth 800/160 1 each PO BID #14 tablet 08/22/21 [Bactrim Ds 800/160] cephALEXin [Keflex] 500 mg PO Q6H #28 cap 08/22/21 - Allergies Allergies/Adverse Reactions: Allergies Allergy/AdvReac Type Severity Reaction Status Date / Time amoxicillin Allergy Unknown Verified 05/03/23 11:44 nitrofurantoin Allergy Rash Verified 05/03/23 11:44 [From Macrobid] clindamycin AdvReac Severe Cramps Verified 05/03/23 11:44 - Social History Does the pt smoke?: No Smoking Status: Never smoker Does the pt drink ETOH?: No Does the pt have substance abuse?: No - Immunizations Immunizations are current?: Yes - POLST Patient has POLST: No PD ED PE NORMAL - Vitals Vital signs reviewed: Yes - General General: Alert and oriented X 3, No acute distress - HEENT HEENT: PERRL, EOMI - Neck Neck: Supple, no meningeal sign, No bony TTP - Cardiac Cardiac: RRR - Respiratory Respiratory: Other (Focally tender to the anterior sternum, no rib tenderness. Clear lungs.) - Abdomen Abdomen: Non tender Results - Vitals Vitals: Vital Signs - 24 hr 05/03/23 05/03/23 11:40 12:52 Temperature 35.9 C L 36.5 C Heart Rate 84 82 Respiratory 20 16 Rate Blood Pressure 144/87 H 130/80 O2 Saturation 98 98 Oxygen O2 Source Room air - Rads (name of study) 2 view chest x-ray is unremarkable Relevant Findings:: Final report received, EMP independent interpretation of test PD Medical Decision Making - ED course ED course: X-ray looking okay from a trauma perspective. Offered CT scanning but with the knowledge that if she had a nondisplaced or minor sternal fracture probably would not exchange operator and after discussion she declined. Departure - Departure Disposition: 01 Home, Self Care Clinical Impression: Chest wall contusion Qualifiers: Encounter type: initial encounter Laterality: unspecified laterality Qualified Code(s): S20.219A - Contusion of unspecified front wall of thorax, initial encounter Condition: Good Instructions: ED Contusion Chest Wall Comments: As discussed, x-rays looking okay, cannot rule out up nondisplaced or very minor sternal fracture but probably would not exchange operator. Return if you worsen. In the interim you can use ibuprofen, Tylenol, and lidocaine patches [id number] for treatment. Follow-up with your doctor in a week or 2 if not improving. Forms: PCP List Discharge Date/Time: 05/03/23 12:50
[2023-05-03 12:54] VITALS: BP 130/80
--- NOTE | 2023-05-03 13:09 | XRAY Report ---
PROCEDURE: Chest 2 View X-Ray INDICATIONS: Traumatic chest pain TECHNIQUE: 2 views of the chest were obtained. COMPARISON: None. FINDINGS: Surgical changes and devices: None. Lungs and pleura: No pleural effusions or pneumothorax. Lungs are clear. Mediastinum: Mediastinal contours appear normal. Heart size is normal. Bones and chest wall: No suspicious bony lesions. Overlying soft tissues appear unremarkable. IMPRESSION: Normal two-view chest x-ray Reviewed by: Sanju Hills MD on 05/03/2023 12:08 PM AKEVELYN Approved by: Sanju Hills MD on 05/03/2023 12:08 PM AKDT Station ID: [id number]
== END 2023-05-03 12:50 | disposition home or self-care (01) ==
LOC: ED 11:35
DX: S20.219A Contusion of unspecified front wall of thorax, initial encounter (principal); W20.8XXA Other cause of strike by thrown, projected or falling object, initial encounter; Z79.899 Other long term (current) drug therapy
CPT/HCPCS: 99283

== ENCOUNTER 2023-09-19 07:00 | Outpatient (CLI) | payer OTHER, BC | END 2023-09-19 23:59 | disposition home or self-care (01) | LOC: LAB.S 07:00 | PROVIDERS: ATTEND Registered Nurse | DX: R30.0 Dysuria (principal); R35.0 Frequency of micturition | CPT/HCPCS: 87086 ==